=== PATIENT | female | born 1935 | race Caucasian/White ===

== ENCOUNTER 2017-01-04 14:46 | Emergency (ER) | payer MEDICARE, OTHER ==
[2017-01-04] MEDS ORDERED: HYDROcodone/Acetaminophen 5/325 mg Tablet ONE (15:21)
[2017-01-04 15:44] LABS: #Monocytes 0.3 thou/uL (0.11-0.59); #Neutrophils 7.9 thou/uL (1.40-6.50); %Basophils 0.4 % (0.0-1.0); %Eosinophils 0.1 % (0.0-10.0); %Monocytes 2.9 % (0.0-10.0); Hematocrit 39.6 % (36.0-47.0); Mean Platelet Volume 8.9 fL (7.4-10.4); White Blood Cell (WBC) Count 9.2 thou/uL (4.8-10.8)
[2017-01-04 15:55] LABS: Anion Gap 17 mmol/L (10-20); BUN (Urea Nitrogen) 16 mg/dL (9.8-20.1); Calc. Creatinine Clearance 0 mL/min (70-130); Calcium 9.5 mg/dL (7.8-10.44); Carbon Dioxide 25 mmol/L (23-31); Chloride 94 mmol/L (98-107); Estimated GFR-MDRD 65
--- NOTE | 2017-01-04 16:14 | ULT ---
LEFT LOWER EXTREMITY VENOUS DUPLEX SONOGRAM: History: Left leg pain and edema. FINDINGS: The left common femoral vein and greater saphenous junction were evaluated along with the femoral, de ep femoral, popliteal, and posterior tibial veins. There is good color and spectral doppler flow, com pression, and augmentation. IMPRESSION: No sonographic evidence of DVT within the left lower extremity. POS: [facility]
== END 2017-01-04 16:20 | disposition home or self-care (01) ==
LOC: SCSER 14:46
DX: M54.42 Lumbago with sciatica, left side (principal); E11.9 Type 2 diabetes mellitus without complications; E78.5 Hyperlipidemia, unspecified; Z85.3 Personal history of malignant neoplasm of breast; Z79.84 Long term (current) use of oral hypoglycemic drugs; Z79.899 Other long term (current) drug therapy
CPT/HCPCS: 80048; 85025

== ENCOUNTER 2017-09-19 09:24 | Outpatient (CLI) | payer MEDICARE ==
[2017-09-19] MEDS ORDERED: Iopamidol 370 76% 100 ML VIAL ONE (13:34)
== END 2017-09-19 09:25 | disposition home or self-care (01) ==
LOC: BICCT 09:24
PROVIDERS: ATTEND Urology
DX: C64.1 Malignant neoplasm of right kidney, except renal pelvis (principal); N28.89 Other specified disorders of kidney and ureter; Z98.890 Other specified postprocedural states
CPT/HCPCS: 74170

== ENCOUNTER 2017-11-21 10:03 | Outpatient (CLI) | payer MEDICARE | END 2017-11-21 10:04 | disposition home or self-care (01) | LOC: BICMAMMO 10:03 | PROVIDERS: ATTEND Internal Medicine | DX: Z12.31 Encounter for screening mammogram for malignant neoplasm of breast (principal); R92.1 Mammographic calcification found on diagnostic imaging of breast; Z85.3 Personal history of malignant neoplasm of breast | CPT/HCPCS: 77063; 77067 ==

== ENCOUNTER 2018-03-27 10:11 | Outpatient (CLI) | payer MEDICARE ==
[2018-03-27] MEDS ORDERED: Iopamidol 370 76% 100 ML VIAL ONE (10:13)
--- NOTE | 2018-03-27 13:34 | CT ---
CT ABDOMEN WITH AND WITHOUT IV CONTRAST: History: Renal cell carcinoma with prior ablation. Follow up. Comparison: Multiple exams back to 08-23-16. FINDINGS: Mild scarring at the lung bases. Cysts of the liver are unchanged in appearance. Gallstones and infer ior vena cava filter are again demonstrated. The area of parenchymal scarring at the lateral margin of the inferior pole right kidney has continue d to become smaller and more contracted. Small cysts associated with each kidney are again demonstrat ed. The area of concern within the posterior cortex of the right kidney on the most recent exam, yessenia uring 1.5 cm, is much smaller on today's study with a more cyst like appearance and measuring 0.9 cm. No new abnormalities are evident. IMPRESSION: 1. Continued evolution of the scarring at the inferior pole right kidney in region of prior tumor. 2. Small bilateral renal cysts. No new abnormalities are apparent. 3. Cholelithiasis. Chronic type findings are stable. POS: [facility]
== END 2018-03-27 10:12 | disposition home or self-care (01) ==
LOC: BICCT 10:11
PROVIDERS: ATTEND Urology
DX: C64.1 Malignant neoplasm of right kidney, except renal pelvis (principal); K80.20 Calculus of gallbladder without cholecystitis without obstruction; N28.1 Cyst of kidney, acquired; N28.89 Other specified disorders of kidney and ureter
CPT/HCPCS: 36415; 74170; 80048; 81001; 82565; Q9967

== ENCOUNTER 2018-07-12 14:11 | Outpatient (CLI) | payer MEDICARE ==
--- NOTE | 2018-07-12 15:21 | ULT ---
LEFT LOWER EXTREMITY VENOUS DUPLEX EXAM: HISTORY: Left leg pain and swelling. FINDINGS: Real-time color Doppler evaluation of the left lower extremity was performed from groin to calf. Thi s included evaluation of common femoral, superficial, and profunda femoral, saphenous, popliteal, and posterior tibial veins. This shows a patent deep venous system. There is normal compressibility an d augmentation. There is no evidence of DVT. IMPRESSION: No evidence of deep vein thrombosis of the left lower extremity. POS: [facility]
== END 2018-07-12 14:12 | disposition home or self-care (01) ==
LOC: ULT 14:11
PROVIDERS: ATTEND Internal Medicine
DX: M79.605 Pain in left leg (principal)

== ENCOUNTER 2018-11-27 14:25 | Outpatient (CLI) | payer MEDICARE ==
--- NOTE | 2018-11-27 16:37 | MMO ---
Bilateral MAMMO Bilat Screen [facility]. CLINICAL HISTORY: Patient is 83 years old and is seen for screening. The patient has no family history of breast cancer. The patient has a history of right Mastectomy at age 51. VIEWS: The views performed were: left craniocaudal with tomosynthesis and left mediolateral oblique with tomosynthesis. FILMS COMPARED: The present examination has been compared to a prior imaging study performed at [facility] on 11/21/2017. This study has been interpreted with the assistance of computer-aided detection. MAMMOGRAM FINDINGS: There are scattered fibroglandular densities. There are benign appearing and vascular calcifications seen in the left breast. There are no suspicious masses, suspicious calcifications, or new areas of architectural distortion. IMPRESSION: THERE IS NO MAMMOGRAPHIC EVIDENCE OF MALIGNANCY. A ROUTINE FOLLOW-UP MAMMOGRAM IN 1 YEAR IS RECOMMENDED. THE RESULTS OF THIS EXAM WERE SENT TO THE PATIENT. ACR BI-RADS Category 2 - Benign finding MAMMOGRAPHY NOTE: 1. A negative mammogram report should not delay a biopsy if a dominant of clinically suspicious mass is present. 2. Approximately 10% to 15% of breast cancers are not detected by mammography. 3. Adenosis and dense breasts may obscure an underlying neoplasm. Reported by: KAPIL HARRIS MD Electonically Signed: [id number]
== END 2018-11-27 14:26 | disposition home or self-care (01) ==
LOC: BICMAMMO 14:25
PROVIDERS: ATTEND Internal Medicine
DX: Z12.31 Encounter for screening mammogram for malignant neoplasm of breast (principal); Z90.11 Acquired absence of right breast and nipple
CPT/HCPCS: 77063; 77067

== ENCOUNTER 2019-03-31 08:11 | Outpatient (CLI) | payer MEDICARE ==
--- NOTE | 2019-03-31 10:37 | CT ---
CT of the abdomen with and without contrast INDICATION: Follow-up right kidney status post cryoablation of a right renal lesion in March 2016. History of hysterectomy, hernia repair, IVC filter placement, pelvic reconstruction due to prolapse and right hip replacement. COMPARISON: CT of the abdomen with and without contrast dated. 2018 and September 19, 2017. TECHNIQUE: Axial noncontrast CT the abdomen, nephrographic phase axial CT the abdomen and delayed pha se axial CT of the abdomen were obtained. Sagittal and coronal reformats were constructed from the delayed phase imaging series. FINDINGS: Kidneys: The focal area of parenchymal scarring involving the anterior aspect of the mid to lower rig ht kidney at site of prior cryoablation is stable. No suspicious residual enhancing mass is seen within the location. Bilateral small renal cysts persist. The largest within the left mid kidney yessenia uring 1.6 cm. No hydronephrosis is evident. No new solid renal lesion is demonstrated. Liver: Scattered hepatic cysts are stable Gallbladder: Numerous gallstones within the gallbladder are stable Pancreas: Normal. Adrenal glands: Normal. Spleen: Normal. Retroperitoneum: No pathologically enlarged lymph nodes are evident. Vasculature: IVC filter is unchanged. There are moderate vascular calcifications seen involving the v isualized vasculature. Visualized small and large bowel: Normal. Soft tissues: Normal. Osseous structures: There is diffuse osteopenia. There is dextroscoliosis of lumbar spine. There is s cattered degenerative and osteoarthritic change present. IMPRESSION: 1. Persistent area of parenchymal scarring and atrophy involving the anterior aspect of the mid to lo wer right kidney at a site of prior renal cryoablation. No residual enhancing solid mass or new enhancing renal mass is demonstrated. There are stable bilateral renal cysts. 2. Stable hepatic cysts. 3. Stable cholelithiasis 4. Stable IVC filter
[2019-03-31] MEDS ORDERED: Iopamidol-370 76% 500 ML 1 ML ONE (10:58)
== END 2019-03-31 08:12 | disposition home or self-care (01) ==
LOC: BICCT 08:11
PROVIDERS: ATTEND Urology
DX: C64.1 Malignant neoplasm of right kidney, except renal pelvis (principal); K80.20 Calculus of gallbladder without cholecystitis without obstruction; K76.89 Other specified diseases of liver; N28.89 Other specified disorders of kidney and ureter; Z95.828 Presence of other vascular implants and grafts; Z98.890 Other specified postprocedural states
CPT/HCPCS: 74170; 82565

== ENCOUNTER 2019-12-01 14:21 | Outpatient (CLI) | payer MEDICARE ==
--- NOTE | 2019-12-01 15:37 | MMO ---
Bilateral MAMMO Bilat Screen [facility]. CLINICAL HISTORY: Patient is 84 years old and is seen for screening. The patient has no family history of breast cancer. The patient has a history of right Mastectomy at age 51. VIEWS: The views performed were: bilateral craniocaudal with tomosynthesis and bilateral mediolateral oblique with tomosynthesis. FILMS COMPARED: The present examination has been compared to prior imaging studies performed at [facility] on 11/21/2017 and 11/27/2018. This study has been interpreted with the assistance of computer-aided detection. MAMMOGRAM FINDINGS: There are scattered fibroglandular densities. There are benign appearing calcifications in the left breast. There are no suspicious masses, suspicious calcifications, or new areas of architectural distortion. IMPRESSION: THERE IS NO MAMMOGRAPHIC EVIDENCE OF MALIGNANCY. A ROUTINE FOLLOW-UP MAMMOGRAM IN 1 YEAR IS RECOMMENDED. THE RESULTS OF THIS EXAM WERE SENT TO THE PATIENT. ACR BI-RADS Category 2 - Benign finding MAMMOGRAPHY NOTE: 1. A negative mammogram report should not delay a biopsy if a dominant of clinically suspicious mass is present. 2. Approximately 10% to 15% of breast cancers are not detected by mammography. 3. Adenosis and dense breasts may obscure an underlying neoplasm. Reported by: NATHAN BANDA MD Electonically Signed: [id number]
== END 2019-12-01 14:22 | disposition home or self-care (01) ==
LOC: BICMAMMO 14:21
PROVIDERS: ATTEND Family Medicine
DX: Z12.31 Encounter for screening mammogram for malignant neoplasm of breast (principal); Z85.3 Personal history of malignant neoplasm of breast; Z90.11 Acquired absence of right breast and nipple
CPT/HCPCS: 77063; 77067

== ENCOUNTER 2020-03-29 09:50 | Outpatient (CLI) | payer MEDICARE ==
--- NOTE | 2020-03-29 11:06 | RAD ---
PA AND LATERAL VIEWS CHEST: HISTORY: Right-sided renal cell carcinoma. COMPARISON: 03/23/2016. FINDINGS: The heart size is normal. The aorta is tortuous. The lungs are expanded without lobar consolidation , pneumothoraces, or pleural effusions. There are degenerative changes in the spine. IMPRESSION: No acute process. POS: OFF
== END 2020-03-29 09:51 | disposition home or self-care (01) ==
LOC: BICRAD 09:50
PROVIDERS: ATTEND Urology
DX: C64.1 Malignant neoplasm of right kidney, except renal pelvis (principal); N28.89 Other specified disorders of kidney and ureter
CPT/HCPCS: 36415; 71046; 80048; 81001; 87086

== ENCOUNTER 2020-12-17 10:03 | Outpatient (CLI) | payer MEDICARE | END 2020-12-17 10:04 | disposition home or self-care (01) | LOC: BICMAMMO 10:03 | PROVIDERS: ATTEND Family Medicine | DX: Z12.31 Encounter for screening mammogram for malignant neoplasm of breast (principal); Z85.3 Personal history of malignant neoplasm of breast; Z90.11 Acquired absence of right breast and nipple | CPT/HCPCS: 77063; 77067 ==

== ENCOUNTER 2022-01-09 12:57 | Outpatient (CLI) | payer MEDICARE | END 2022-01-09 12:58 | disposition home or self-care (01) | LOC: BICMAMMO 12:57 | PROVIDERS: ATTEND Family Medicine | DX: Z12.31 Encounter for screening mammogram for malignant neoplasm of breast (principal); Z90.11 Acquired absence of right breast and nipple; Z85.528 Personal history of other malignant neoplasm of kidney | CPT/HCPCS: 77063; 77067 ==

== ENCOUNTER 2023-01-24 08:55 | Outpatient (CLI) | payer MEDICARE | END 2023-01-24 08:56 | disposition home or self-care (01) | LOC: BICMAMMO 08:55 | PROVIDERS: ATTEND Student in an Organized Health Care Education/Training Program | DX: Z12.31 Encounter for screening mammogram for malignant neoplasm of breast (principal); Z85.3 Personal history of malignant neoplasm of breast; Z85.528 Personal history of other malignant neoplasm of kidney; Z90.11 Acquired absence of right breast and nipple | CPT/HCPCS: 77063; 77067 ==

== ENCOUNTER 2023-08-28 10:54 | Outpatient (CLI) | payer MEDICARE | END 2023-08-28 10:55 | disposition home or self-care (01) | LOC: BICMAMMO 10:54 | PROVIDERS: ATTEND Student in an Organized Health Care Education/Training Program | DX: Z13.820 Encounter for screening for osteoporosis (principal); M85.89 Other specified disorders of bone density and structure, multiple sites; Z78.0 Asymptomatic menopausal state | CPT/HCPCS: 77080 ==